=== PATIENT | female | born 1950 | race Caucasian/White ===

== ENCOUNTER 2017-10-17 22:40 | Inpatient (IN) | payer MEDICAID ==
[~2017-10-17] VITALS: Ht 144.8 cm; Wt 69.9 kg
[2017-10-17] MEDS ORDERED: ASPIRIN 81MG TABLET PO ONE (23:30)
[2017-10-17] MEDS ORDERED: LABETALOL HCL 20MG/4ML CARPUJECT IV ONE (23:30)
[2017-10-17] MEDS ORDERED: LABETALOL 5MG/ML SYR 20 MG/4 ML SYRINGE IV NR (23:45)
[2017-10-18 00:44] LABS: EOSINOPHILS % 1.2 % (0.0-5.0); HEMATOCRIT. 38.2 % (36.0-48.0); HEMOGLOBIN. 13.3 g/dL (12.0-16.0); LYMPHOCYTES % 45.2 % (20.0-50.0); MEAN CORPUSCULAR HEMOGLOBIN 29.5 pg (28.0-32.0); MEAN CORPUSCULAR VOLUME 84.8 fL (81.0-99.0); MEAN PLATELET VOLUME 7.9 fl (7.4-10.4); MONOCYTES % 7.2 % (2.0-8.0); NEUTROPHILS % 45.4 % (40.0-76.0); PLATELET 287 x1000/uL (130-400); RED CELL DISTRIBUTION WIDTH 13.4 % (11.6-14.6)
[2017-10-18 00:50] LABS: CHLORIDE 100 mEq/L (98-107)
[2017-10-18 00:52] LABS: PROTHROMBIN TIME 10.7 sec (9.4-11.6)
[2017-10-18] MEDS ORDERED: METF10002 PO (05:11)
[2017-10-18] MEDS ORDERED: LOSA100T14 PO (05:11)
[2017-10-18] MEDS ORDERED: ATOR20TA65 PO (05:11)
[2017-10-18] MEDS ORDERED: SITA50TA3 PO (05:11)
[2017-10-18 05:13] VITALS: BP 162/62
[2017-10-18] MEDS ORDERED: ONDANSETRON HCL 4MG/2ML VIAL IV PRN (06:45)
[2017-10-18] MEDS ORDERED: HYDROCODONE/ACETAMINOPHEN 5/325MG TABLET PO PRN (06:45)
[2017-10-18 08:30] VITALS: BP 128/52
[2017-10-18] MEDS ORDERED: ENOXAPARIN 40MG/0.4ML SYR SUBCUT SCH (09:00)
[2017-10-18] MEDS ORDERED: AMLODIPINE 5MG TABLET PO SCH (09:00)
[2017-10-18] MEDS ORDERED: DEXTROSE 50% WATER 50ML SYRINGE IV PRN (11:00)
[2017-10-18 11:20] VITALS: BP 128/61
[2017-10-18] MEDS ORDERED: PNEUMOCOCCAL 23-VAL P-SAC VAC 0.5 ML IM ONE (12:00)
[2017-10-18] MEDS ORDERED: BLOOD SUGAR DIAGNOSTIC STRIP TEST SCH (12:20)
[2017-10-18] MEDS ORDERED: INSULIN LISPRO 100 UNITS/ML SUBCUT SCH (12:50)
[2017-10-18 15:24] LABS: CREATINE KINASE 51 IU/L (26-192)
[2017-10-18 15:32] LABS: CREATINE KINASE MB FRACTION 0.6 ng/mL (0.5-3.6)
== END 2017-10-18 16:00 | disposition home or self-care (01) | DRG 199 ==
LOC: ER 22:40 → 6WST 10-18 01:36 → EDBEDREQTM 10-18 01:40 → EDBEDREQ 10-18 01:40 → ENRESERV 10-18 03:02
PROVIDERS: ADMIT Hospitalist; ATTEND Hospitalist
DX: I16.0 Hypertensive urgency (principal); E87.1 Hypo-osmolality and hyponatremia; I10 Essential (primary) hypertension; E11.9 Type 2 diabetes mellitus without complications; Z79.899 Other long term (current) drug therapy; M94.0 Chondrocostal junction syndrome [Tietze]
CPT/HCPCS: 36415; 71045; 80053; 82550; 82553; 82962; 83880; 84484; 85025; 85610; 90732; 93005; 96374; 99285; J1650; J1815; J3490